=== PATIENT | female | born 1965 | race Caucasian/White ===

== ENCOUNTER → 2020-11-01 | Day surgery (SDC) | payer SELFPAY ==
[~2020-11-01] VITALS: Ht 157.5 cm; Wt 71.7 kg
[~2020-11-01] MED LIST: ASPIRIN EC81 MG PO; BLACK ELDERBER1 EACH PO; CENTRUM SILVER1 EAC4 PO; CINNAMON500 MG PO; COLESTID 1GM TAB1 GM PO; FISH OIL 1,2001 EACH PO; FLONASE ALLER15.8 ML; GARLIC1000 MG PO; JANUVIA50 MG PO; MAG-OXIDE 400M400 MG PO; NORCO 5-325 TA1 EACH PO; OMEPRAZOLE40 MG PO; ONDANSETRON ODT8 MG PO; STOOL SOFTENER100 MG PO; SUPER B-50 COM1 EACH PO; TRESIBA FL200 UNIT/1 SC; VITAMIN C WITH ZINC PO; ZYRTEC10 M3 PO
[2020-11-01 08:17] LABS: MCH 29.8 pg (25.0-31.0); MCHC 34.8 g/dL (32.0-36.0); MCV 85.7 fL (78.0-100.0); MPV 9.1 fL (6.0-9.5); RBC 5.37 M/uL (4.20-5.40); RDW 12.4 % (11.5-14.0); WBC 8.1 K/uL (4.0-10.5)
[2020-11-01 08:39] LABS: CREATININE 0.86 mg/dL (0.51-0.95)
[2020-11-01 08:40] LABS: ALBUMIN 3.9 g/dL (3.4-5.0); BILIRUBIN - TOTAL 0.9 mg/dL (0.2-1.0); TOTAL PROTEIN 8.9 g/dL (6.4-8.2)
== END | disposition home or self-care (01) ==
LOC: FAS 07:20
PROVIDERS: Surgery
DX: K21.00 Gastro-esophageal reflux disease with esophagitis, without bleeding (principal); K29.50 Unspecified chronic gastritis without bleeding; E11.9 Type 2 diabetes mellitus without complications; F41.9 Anxiety disorder, unspecified; Z79.82 Long term (current) use of aspirin
CPT/HCPCS: 36415; 80053; 82962; J2250; J2704; J7120

== ENCOUNTER → 2020-11-30 | Day surgery (SDC) | payer SELFPAY ==
[~2020-11-30] VITALS: Ht 157.5 cm; Wt 71.7 kg
[2020-11-30 09:54] LABS: HCT 44.8 % (37.0-47.0); HGB 15.8 g/dl (12.5-16.0); MCH 29.9 pg (25.0-31.0); MCHC 35.3 g/dL (32.0-36.0); MCV 84.7 fL (78.0-100.0); MPV 9.5 fL (6.0-9.5); RBC 5.29 M/uL (4.20-5.40); RDW 12.8 % (11.5-14.0); WBC 8.7 K/uL (4.0-10.5)
[2020-11-30 10:35] LABS: ALBUMIN 3.6 g/dL (3.4-5.0); BILIRUBIN - TOTAL 0.6 mg/dL (0.2-1.0); BUN/CREAT RATIO (CALC) 17.2 RATIO; CREATININE 0.87 mg/dL (0.51-0.95); GLOBULIN (CALCULATION) 4.5 g/dL; POTASSIUM 3.9 mmol/L (3.5-5.1); TOTAL PROTEIN 8.1 g/dL (6.4-8.2)
== END | disposition home or self-care (01) ==
LOC: FAS 09:08
PROVIDERS: Surgery
DX: K81.1 Chronic cholecystitis (principal); K76.0 Fatty (change of) liver, not elsewhere classified; K74.01 Hepatic fibrosis, early fibrosis; F41.9 Anxiety disorder, unspecified; K21.9 Gastro-esophageal reflux disease without esophagitis; E11.9 Type 2 diabetes mellitus without complications
CPT/HCPCS: 36415; 74300; 80053; C1758; J1100; J1170; J1885; J2250; J2405; J2550; J2704; J2710; J3010; J7120; Q9967